=== PATIENT | female | born 1960 | race Caucasian/White ===

== ENCOUNTER 2020-04-01 07:17 | Emergency (ER) | payer OTHER ==
[~2020-04-01] VITALS: Ht 162.6 cm; Wt 75.3 kg
[2020-04-01 08:13] VITALS: Ht 162.6 cm; Wt 75.3 kg
[2020-04-01 10:12] VITALS: BP 139/78
== END 2020-04-01 10:12 | disposition home or self-care (01) ==
LOC: ED 07:17
DX: S20.211A Contusion of right front wall of thorax, initial encounter (principal); V49.59XA Passenger injured in collision with other motor vehicles in traffic accident, initial encounter; Y93.89 Activity, other specified; Y92.413 State road as the place of occurrence of the external cause; Y99.8 Other external cause status